=== PATIENT | female | born 1935 | race Asian ===

== ENCOUNTER 2019-12-23 12:20 | Emergency (ER) | payer OTHER ==
[~2019-12-23] VITALS: Ht 144.8 cm; Wt 46.3 kg
[2019-12-23 12:22] VITALS: BP 104/41
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
--- NOTE | 2019-12-23 13:20 | NUR ---
PT AMBULATED TO RESTROOM WITH ASSISTANCE.
--- NOTE | 2019-12-23 14:00 | NUR ---
PT TRYING TO GET OUT OF BED, ABLE TO BE REDIRECTED BACK INTO BED. WILL CONTINUE TO MONITOR
[2019-12-23] MEDS ORDERED: LORazepam 2 MG/ML VIAL IM ONE (14:15)
[2019-12-23 14:42] LABS: BASOPHILS % (AUTO) 0.6 % (0.0-2.0); EOSINOPHILS # (AUTO) 0.3 K/uL (0-0.4); EOSINOPHILS % (AUTO) 4.3 % (0.0-4.0); HEMATOCRIT 35.4 % (36-48); HEMOGLOBIN 11.5 g/dL (12.0-16.0); LYMPHOCYTES # (AUTO) 1.5 K/uL (2.5-16.5); LYMPHOCYTES % (AUTO) 23.4 % (20.5-51.1); MEAN CORPUSCULAR HEMOGLOBIN 29 pg (27-31); MEAN CORPUSCULAR HGB CONC 33 g/dL (33-37); MEAN CORPUSCULAR VOLUME 87.9 fL (80-94); MONOCYTES # (AUTO) 0.6 K/uL (0.8-1.0); MONOCYTES % (AUTO) 8.7 % (1.7-9.3); PLATELET COUNT (AUTO) 182 K/uL (140-450); RED BLOOD CELL COUNT(AUTO) 4.02 MIL/uL (4.20-5.40); RED CELL DISTRIBUTION WIDTH 15.1 % (11.6-13.7); WHITE BLOOD COUNT (AUTO) 6.4 K/uL (4.8-10.8)
--- NOTE | 2019-12-23 14:44 | NUR ---
22G IV PLACED TO LT FOREARM, LABS COLLECTED AT THIS TIME BY RN.
--- NOTE | 2019-12-23 15:00 | NUR ---
PT REMAINS AGITATED AND TRYING TO GET OUT OF BED.
[2019-12-23 15:06] LABS: ALBUMIN 3.4 g/dL (3.4-5.0); ANION GAP 12.4 (8-16); ASPARTATE AMINOTRANSFERASE 53 U/L (15-37); CARBON DIOXIDE 29.2 mmol/L (21-32); CHLORIDE 101 mmol/L (98-107); CREATININE 1.2 mg/dL (0.6-1.3); GLUCOSE 116 mg/dL (74-106); POTASSIUM 3.6 mmol/L (3.5-5.1); SODIUM SERUM 139 mmol/L (136-145); TOTAL BILIRUBIN 0.5 mg/dL (0.0-1.0); UREA NITROGEN, BLOOD 16 mg/dL (7-18)
[2019-12-23] MEDS ORDERED: LORazepam 2 MG/ML VIAL IVP ONE (15:15)
--- NOTE | 2019-12-23 16:12 | NUR ---
PT TO CT VIA CELESTE
--- NOTE | 2019-12-23 17:11 | NUR ---
LAYING IN BED WITH EYES CLOSED, POSITIONED FOR COMFORT. VISIBLE RISE AND FALL OF THE CHEST. FAMILY AT BEDSIDE. WILL CONTINUE TO MONITOR
[2019-12-23 17:51] VITALS: BP 104/41
--- NOTE | 2019-12-23 17:51 | NUR ---
Patient discharged with v/s stable. Written and verbal after care instructions given and explained. Patient alert, oriented and verbalized understanding of instructions. Wheel Chair Assisted with to home. All questions addressed prior to discharge. ID band removed. Patient advised to follow up with PMD. Rx of AZITHROMYCIN given. Patient educated on indication of medication including possible reaction and side effects. Opportunity to ask questions provided and answered.
== END 2019-12-23 17:51 | disposition home or self-care (01) ==
LOC: MED 12:20
DX: T85.510A Breakdown (mechanical) of bile duct prosthesis, initial encounter (principal); J18.9 Pneumonia, unspecified organism; I11.0 Hypertensive heart disease with heart failure; I50.9 Heart failure, unspecified; F03.90 Unspecified dementia, unspecified severity, without behavioral disturbance, psychotic disturbance, mood disturbance, and anxiety; R94.31 Abnormal electrocardiogram [ECG] [EKG]; Z85.118 Personal history of other malignant neoplasm of bronchus and lung
CPT/HCPCS: 36415; 71045; 74176; 80053; 84484; 85025; 93005; 96372; 96374; 99285; J2060; Q0092